=== PATIENT | male | born 1985 | race African-American/Black ===

== ENCOUNTER 2017-07-04 06:21 | Emergency (ER) | payer OTHER ==
[2017-07-04] MEDS ORDERED: Ketorolac 60 MG/2 ML SDV IM ONE (06:32)
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
== END 2017-07-04 07:52 | disposition home or self-care (01) ==
LOC: MW.ED 06:21
DX: S40.012A Contusion of left shoulder, initial encounter (principal); V86.99XA Unspecified occupant of other special all-terrain or other off-road motor vehicle injured in nontraffic accident, initial encounter
CPT/HCPCS: 71045; 73030; 96372; 99284; A4566; J1885

== ENCOUNTER 2017-09-07 22:05 | Emergency (ER) | payer OTHER ==
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
[2017-09-07] MEDS ORDERED: Acetaminophen/HYDROcodone 325-7.5 MG Tab PO STA (23:51)
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
== END 2017-09-08 00:24 | disposition home or self-care (01) ==
LOC: MW.ED 22:05
DX: S43.005A Unspecified dislocation of left shoulder joint, initial encounter (principal); W11.XXXA Fall on and from ladder, initial encounter
CPT/HCPCS: 73030; 99283; A9270